=== PATIENT | female | born 1970 | race African-American/Black ===

== ENCOUNTER → 2017-09-11 | Day surgery (SDC) | payer OTHER ==
[~2017-09-11] VITALS: Ht 157.5 cm; Wt 94.0 kg
[~2017-09-11] MED LIST: ACETAMINOPHEN 1000 MG/100 ML 100 ML IV SCH; BUPIVACAINE/EPINEPHRINE 0.25% PF 30 ML VIAL ONE; CHLORHEXIDINE GLUCONATE 2 % 1 PACK (2 CLOTHS) TOPICAL PRN; DEXAMETHASONE SOD PHOS 4 MG/ML VIAL IV ONE; FERR325T18 PO; HYDR25TA5 PO; KETOROLAC TROMETHAMINE 30 MG/ML (IVP) VIAL IV PUSH ONE; LACTATED RINGER'S 1000 ML IV PRN; LIDOCAINE HCL 1% PF 5 ML SYRINGE OTHER ONE; METOPROLOL TARTRATE 25 MG TAB PO PRN; ONDANSETRON HCL 4 MG/2 ML VIAL IV PUSH ONE; POVIDONE IODINE 5% (ANTISEPSIS KIT) 4 APPLICATIONS EACH NARE PRN; PROPOFOL 200 MG/20 ML AMP IV ONE; ROCURONIUM INJ 50 MG/5 ML SYRINGE IV PUSH ONE; SODIUM CHLORID 0.9% 500 ML IV PRN; TRAM50TA PO; VITA250T3 PO; VITA500012 PO; ZOLP5TAB3 PO; ceFAZolin 2 GM PREMIX 50 ML IV SCH; fentaNYL CITRATE 250 MCG/5 ML AMP ONE
--- NOTE | 2017-09-11 11:45 | MP ---
cc: Oswald Bailey MD DATE OF OPERATION: 09/11/2017 DATE OF PROCEDURE: 09/11/2017 PREOPERATIVE DIAGNOSIS: Chronic cholecystitis and cholelithiasis. POSTOPERATIVE DIAGNOSIS: Chronic cholecystitis and cholelithiasis. PROCEDURE PERFORMED: Laparoscopic cholecystectomy. SURGEON: Oswald Bailey MD ANESTHESIA: General endotracheal. OPERATIVE FINDINGS: The patient was found to have a chronically diseased, moderately shrunken, thick walled gallbladder, which had omental adhesions to much of its length. There were large stones within the lumen. The cystic duct was seen to be of normal caliber, although thick walled. No other abnormalities were noted. OPERATIVE PROCEDURE IN DETAIL: The patient was brought to the operating room, and after satisfactory general endotracheal anesthesia was obtained, the abdomen was prepped and draped in the usual sterile fashion. Next, 0.25% Marcaine with epinephrine was used to infiltrate the skin for local anesthesia. A small incision was made just above the umbilicus and a 5 mm trocar was inserted into the peritoneal cavity under direct visualization. The abdomen was distended to 15 mmHg using carbon dioxide, after which the camera was reinserted and visceral injury inspected for, with none being identified. Under direct visualization, a 5 port and a 12 port were placed in the upper abdomen. The fundus of the gallbladder was identified, grasped and retracted superiorly over the right lobe of the liver, placing tension on the adhesions to the omentum, which were taken down bluntly with a Harmonic scalpel used for hemostasis. The area was cleared after which, Aden's pouch was grasped and retracted inferiorly and laterally, placing tension on the hepatoduodenal ligament. The cystic duct and cystic artery were both dissected free bluntly to obtain the critical view. Once the critical view had been obtained, the cystic duct and artery were both divided separately near their junction with the gallbladder using the Harmonic scalpel. A couple of clips were placed on the cystic duct due to its thick walled nature. The gallbladder was then dissected free from the liver bed using the Harmonic scalpel. It was placed within an EndoCatch bag and brought through the upper midline incision, where it was withdrawn without problem. The trocar was reinserted and the liver bed inspected and found to be hemostatic. The cystic duct and cystic artery stumps were both carefully inspected and found to be intact with no leakage of bile or blood. The carbon dioxide was vented as completely as possible to the atmosphere, after which the ports were removed and the skin closed with interrupted 4-0 PDS subcuticular stitch. Steri-Strips were applied and the patient was then awakened and taken from the operating room in satisfactory condition, having tolerated the procedure without problem. Estimated blood loss was less than 10 mL. The instrument, sponge, and needle counts were reported as being correct at the end of the procedure. MD IVY Gallardo/ALVINA , 11:27 AM , 11:43 AM
[2017-09-11 11:53] VITALS: BP 140/80; PULSE 80; RESP 16; TEMP 98; O2SAT 98
== END | disposition home or self-care (01) ==
LOC: PHSDC 07:10
PROVIDERS: ATTEND Surgery
DX: K80.10 Calculus of gallbladder with chronic cholecystitis without obstruction (principal)
CPT/HCPCS: 00790; 47562; 88304; J0131; J0690; J1100; J1885; J2405; J3010; J7120